=== PATIENT | male | born 1960 | race African-American/Black ===

== ENCOUNTER 2023-05-17 13:16 | Inpatient (IN) | payer OTHER ==
[2023-05-17 13:49] VITALS: BMI 31.2
[2023-05-17] MEDS ORDERED: BENZOCAINE/MENTHOL (CHLORASEPTIC ) LOZENGE MM PRN (14:47)
[2023-05-17] MEDS ORDERED: MAGNESIUM HYDROX 2400MG/30ML ORAL SUSPENSION 30 ML CUP PO PRN (14:47)
[2023-05-17] MEDS ORDERED: MAG HYDROX/AL HYDROX/SIMETH 30 ML UNIT-DOSE CUP PO PRN (14:47)
[2023-05-17] MEDS ORDERED: NALOXONE HCL 0.4 MG/ML VIAL IM PRN (14:47)
[2023-05-17] MEDS ORDERED: guaiFENesin 600 MG TABLET.ER (FP) PO PRN (14:47)
[2023-05-17] MEDS ORDERED: NALOXONE HCL (KLOXXADO) 8 MG SPRAY NS PRN (14:47)
[2023-05-17] MEDS ORDERED: POLYETHYLENE GLYCOL (HEALTHYLAX) 3350 17 GM PACKET PO PRN (14:47)
[2023-05-17] MEDS ORDERED: BENZONATATE 200 MG CAPSULE PO PRN (14:47)
[2023-05-17] MEDS ORDERED: NICOTINE POLACRILEX 2 MG GUM BUC PRN (14:47)
[2023-05-17] MEDS ORDERED: LOPERAMIDE HCL 2 MG CAPSULE PO PRN (14:47)
[2023-05-17] MEDS: THIAMINE HCL 100 MG TABLET (FP) PO SCH (21:26)
[2023-05-17] MEDS: MELATONIN 5 MG TABLETS PO SCH (21:26)
[2023-05-17] MEDS: PRAZOSIN HCL 1 MG CAPSULE PO SCH (22:22)
[2023-05-17] MEDS: DIVALPROEX SODIUM 500 MG TABLET E.C. PO SCH (22:22)
[2023-05-17] MEDS: ATORVASTATIN CA 10 MG TABLET (FP) PO SCH (22:22)
[2023-05-18] MEDS: PRIMIDONE 50 MG TABLET PO SCH (00:16)
[2023-05-18] MEDS: BUDESONIDE/FORMETEROL FUMARATE 80/4.5 mcg INHALER IH SCH (09:53)
[2023-05-18] MEDS: NICOTINE 14 MG/24 HOURS TOPICAL PATCH TD SCH (09:54)
[2023-05-18] MEDS: CHOLECALCIFEROL (VIT D3) 400 UNIT (10 MCG) TABLET PO SCH (09:54)
[2023-05-18] MEDS: GABAPENTIN 400 MG CAPSULE PO SCH (09:54)
[2023-05-18] MEDS: PANTOPRAZOLE 40 MG TABLET PO SCH (09:54)
[2023-05-18] MEDS: PRENATAL VITAMINS W/ FOLIC ACID TABLET (FP) PO SCH (09:54)
[2023-05-18] MEDS: ARIPiprazole 2 MG TABLET PO SCH (09:56)
[2023-05-18] MEDS ORDERED: FINASTERIDE 5 MG TABLET (FP) PO SCH (10:00)
[2023-05-18] MEDS: ASCORBIC ACID 500 MG TABLET (FP) PO SCH (11:08)
[2023-05-18 11:51] LABS: HEMATOCRIT 37.8 % (35.4-49); HEMOGLOBIN 12.3 GM/dL (11.7-16.9); MCH 29.5 pg (25.7-33.7); MCHC 32.5 g/dl (32.0-35.9); MEAN CELL VOLUME 90.6 fl (80-96); MEAN PLT VOLUME 9.1 fl (7.5-11.1); PLATELET COUNT 191 10^3/uL (134-434); RBC 4.17 M/mm3 (4.00-5.60); RDW 14.9 % (11.9-15.9); WHITE BLOOD COUNT 5.9 K/mm3 (4.0-10.0)
[2023-05-18 12:07] LABS: URINE APPEARANCE CLEAR; URINE BILIRUBIN NEGATIVE (NEGATIVE); URINE COLOR YELLOW; URINE GLUCOSE (UA) NEGATIVE (NEGATIVE); URINE KETONE TRACE (NEGATIVE); URINE LEUK ESTERASE NEGATIVE (NEGATIVE); URINE NITRITE NEGATIVE (NEGATIVE); URINE PROTEIN NEGATIVE (NEGATIVE); URINE UROBILINOGEN 0.2 mg/dL (0.2-1.0)
[2023-05-18 12:18] LABS: CHLORIDE 104 mmol/L (98-107); POTASSIUM 3.8 mmol/L (3.5-5.1); SODIUM 138 mmol/L (136-145)
[2023-05-18 12:27] LABS: ALBUMIN 3.1 g/dl (3.4-5.0); ANION GAP 5 mmol/L (4-13); BLOOD UREA NITROGEN 20.6 mg/dL (7-18); CALCIUM 8.2 mg/dL (8.5-10.1); CO2 29 mmol/L (21-32); GLUCOSE,RANDOM 153 mg/dL (74-106)
[2023-05-18 12:30] LABS: CREATININE 1.2 mg/dL (0.55-1.3); SGOT/AST 11 U/L (15-37); SGPT/ALT 19 U/L (13-61)
[2023-05-18 12:32] LABS: ALK PHOS 75 U/L (45-117); BILIRUBIN,TOTAL 0.2 mg/dL (0.2-1); TOT PROT 6.1 g/dl (6.4-8.2)
[2023-05-18] MEDS: MIRTAZAPINE 15 MG TABLET (FP) PO SCH (21:09)
[2023-05-19] MEDS ORDERED: FINASTERIDE 5 MG TABLET (FP) PO SCH (10:00)
[2023-05-19] MEDS: ACETAMINOPHEN 325 MG TABLET (FP) PO PRN (11:43)
[2023-05-20] MEDS: FUROSEMIDE 40 MG TABLET (FP) PO SCH (14:45)
[2023-05-20] MEDS: GABAPENTIN 300 MG CAPSULE PO SCH (21:13)
[2023-05-20] MEDS: ZINC OXIDE/PANTHENOL/VITAMIN E 56 GM TUBE TP PRN (21:15)
[2023-05-21] MEDS: ACETAMINOPHEN 325 MG TABLET (FP) PO PRN (19:27)
[2023-05-27] MEDS: FUROSEMIDE 20 MG TABLET (FP) PO SCH (15:15)
[2023-05-27] MEDS: METHYL SALICYLATE/MENTHOL OINT 30 GM TUBE TP SCH (15:16)
[2023-05-29] MEDS: ALBUTEROL SO4 HFA INHALER IH PRN (06:36)
[2023-05-29] MEDS: INSULIN ASPART SLIDING SCALE (NOVOLOG) 1 VIAL SQ SCH (16:56)
[2023-05-31 06:50] VITALS: RESP 18; TEMP 97.5
[2023-05-31 08:51] VITALS: BP 143/77; PULSE 92
== END 2023-05-31 09:42 | disposition home or self-care (01) | DRG 895 ==
LOC: YASAS 13:16 → Y3W 18:37
PROVIDERS: ADMIT Allergy & Immunology; ATTEND Psychiatry & Neurology Pain Medicine
PROC: HZ42ZZZ Group Counseling for Substance Abuse Treatment, Cognitive-Behavioral (ICD-10-PCS; principal; 2023-05-17)
DX: F10.20 Alcohol dependence, uncomplicated (principal); F14.20 Cocaine dependence, uncomplicated; F12.20 Cannabis dependence, uncomplicated; F17.210 Nicotine dependence, cigarettes, uncomplicated; F10.24 Alcohol dependence with alcohol-induced mood disorder; F10.282 Alcohol dependence with alcohol-induced sleep disorder; F31.9 Bipolar disorder, unspecified; G62.9 Polyneuropathy, unspecified; I10 Essential (primary) hypertension; J44.9 Chronic obstructive pulmonary disease, unspecified; E78.5 Hyperlipidemia, unspecified; E11.9 Type 2 diabetes mellitus without complications; Z79.84 Long term (current) use of oral hypoglycemic drugs; N40.0 Benign prostatic hyperplasia without lower urinary tract symptoms; R76.11 Nonspecific reaction to tuberculin skin test without active tuberculosis; R60.0 Localized edema; Z99.89 Dependence on other enabling machines and devices; Z88.0 Allergy status to penicillin; Z88.8 Allergy status to other drugs, medicaments and biological substances
CPT/HCPCS: 36415; 71046-TC-FY; 80053; 80307; 81003; 82962; 85027; 86593; 86780; 87635; 93005; 93010

== ENCOUNTER 2023-07-28 12:24 | Inpatient (IN) | payer OTHER ==
[2023-07-28 13:39] VITALS: BMI 30.5
[2023-07-28] MEDS ORDERED: ALBUTEROL SO4 HFA INHALER IH PRN (15:20)
[2023-07-28] MEDS ORDERED: P-EPHED 60MG/TRIPROLIDI 2.5MG TABLET PO PRN (15:33)
[2023-07-28] MEDS ORDERED: ACETAMINOPHEN 325 MG TABLET (FP) PO PRN (15:33)
[2023-07-28] MEDS ORDERED: BENZOCAINE/MENTHOL (CHLORASEPTIC ) LOZENGE MM PRN (15:33)
[2023-07-28] MEDS ORDERED: guaiFENesin 600 MG TABLET.ER (FP) PO PRN (15:33)
[2023-07-28] MEDS ORDERED: DOCUSATE SODIUM 100 MG CAPSULE (FP) PO PRN (15:33)
[2023-07-28] MEDS ORDERED: MAGNESIUM HYDROX 2400MG/30ML ORAL SUSPENSION 30 ML CUP PO PRN (15:33)
[2023-07-28] MEDS ORDERED: POLYETHYLENE GLYCOL (HEALTHYLAX) 3350 17 GM PACKET PO PRN (15:33)
[2023-07-28] MEDS ORDERED: MAG HYDROX/AL HYDROX/SIMETH 30 ML UNIT-DOSE CUP PO PRN (15:33)
[2023-07-28] MEDS ORDERED: LOPERAMIDE HCL 2 MG CAPSULE PO PRN (15:33)
[2023-07-28] MEDS ORDERED: BENZONATATE 200 MG CAPSULE PO PRN (15:33)
[2023-07-28] MEDS: BACITRACIN 0.9 GM PACKET TP SCH (18:55)
[2023-07-28 19:02] LABS: PH,URINE 6.5 (5.0-8.0); URINE APPEARANCE CLEAR; URINE BILIRUBIN NEGATIVE (NEGATIVE); URINE COLOR YELLOW; URINE GLUCOSE (UA) NEGATIVE (NEGATIVE); URINE KETONE TRACE (NEGATIVE); URINE LEUK ESTERASE NEGATIVE (NEGATIVE); URINE NITRITE NEGATIVE (NEGATIVE); URINE PROTEIN TRACE (NEGATIVE)
[2023-07-28] MEDS: THIAMINE 100 MG TABLET PO SCH (22:27)
[2023-07-28] MEDS: BUDESONIDE/FORMETEROL FUMARATE 80/4.5 mcg INHALER IH SCH (22:27)
[2023-07-28] MEDS: GABAPENTIN 300 MG CAPSULE PO SCH (22:27)
[2023-07-28] MEDS: MELATONIN 5 MG TABLETS PO SCH (22:28)
[2023-07-28] MEDS: ATORVASTATIN CA 10 MG TABLET (FP) PO SCH (22:28)
[2023-07-29] MEDS: FUROSEMIDE 20 MG TABLET (FP) PO SCH (05:29)
[2023-07-29] MEDS: PANTOPRAZOLE 40 MG TABLET PO SCH (10:11)
[2023-07-29] MEDS: PRENATAL VITAMINS W/ FOLIC ACID TABLET (FP) PO SCH (10:12)
[2023-07-29] MEDS: ASCORBIC ACID 500 MG TABLET (FP) PO SCH (10:36)
[2023-07-29] MEDS: FINASTERIDE 5 MG TABLET (FP) PO SCH (10:36)
[2023-07-29] MEDS: CHOLECALCIFEROL (VIT D3) 400 UNIT (10 MCG) TABLET PO SCH (10:37)
[2023-07-29 12:18] LABS: HEMATOCRIT 42.6 % (35.4-49); HEMOGLOBIN 13.6 GM/dL (11.7-16.9); MCH 28.9 pg (25.7-33.7); MEAN CELL VOLUME 90.4 fl (80-96); PLATELET COUNT 294 10^3/uL (134-434); RBC 4.71 M/mm3 (4.00-5.60); WHITE BLOOD COUNT 8.2 K/mm3 (4.0-10.0)
[2023-07-29 12:38] LABS: POTASSIUM 4.2 mmol/L (3.5-5.1)
[2023-07-29 13:02] LABS: CALCIUM 8.7 mg/dL (8.5-10.1)
[2023-07-29 13:03] LABS: ALBUMIN 3.3 g/dl (3.4-5.0); BLOOD UREA NITROGEN 16.7 mg/dL (7-18)
[2023-07-29 13:06] LABS: CREATININE 0.9 mg/dL (0.55-1.3)
[2023-07-29 13:07] LABS: BILIRUBIN,TOTAL 0.4 mg/dL (0.2-1); TOT PROT 6.4 g/dl (6.4-8.2)
[2023-07-29] MEDS: ACETAMINOPHEN 325 MG TABLET (FP) PO PRN (14:26)
[2023-07-29] MEDS: ARIPiprazole 2 MG TABLET PO SCH (15:21)
[2023-07-29] MEDS: MIRTAZAPINE 15 MG TABLET (FP) PO SCH (22:57)
[2023-07-29] MEDS: PRAZOSIN HCL 1 MG CAPSULE PO SCH (22:57)
[2023-07-29] MEDS: DIVALPROEX SODIUM 500 MG TABLET E.C. PO SCH (22:57)
[2023-07-30] MEDS ORDERED: AMMONIUM LACTATE 12% LOTION 225 GM BOTTLE TP PRN (14:49)
[2023-07-30] MEDS ORDERED: NALTREXONE HCL 50 MG TABLET PO ONE (15:15)
[2023-07-30] MEDS: SILVER SULFADIAZINE 1% TOP CREAM 50 GM JAR TP SCH (18:06)
[2023-07-30] MEDS: NALTREXONE HCL 50 MG TABLET PO ONE (18:34)
[2023-07-30] MEDS: BACLOFEN 10 MG TABLET (FP) PO SCH (22:23)
[2023-07-30] MEDS: PRIMIDONE 50 MG TABLET PO SCH (22:23)
[2023-07-31] MEDS: NALTREXONE HCL 50 MG TABLET PO SCH (10:42)
[2023-07-31 11:58] LABS: INR 1.01 (0.83-1.09); PROTHROMBIN TIME (PATIENT) 11.7 SEC (9.7-13.0)
[2023-08-01] MEDS: ACETAMINOPHEN 325 MG TABLET (FP) PO PRN (00:35)
[2023-08-01] MEDS: HYDROCORTISONE 0.5% TOPICAL CREAM 30 GM TUBE TP PRN (09:42)
[2023-08-02] MEDS: GABAPENTIN 400 MG CAPSULE PO SCH (13:09)
[2023-08-02] MEDS: LACTULOSE 20 GM/30 ML UDC (FOR ORAL USE ONLY) PO SCH (13:09)
[2023-08-02] MEDS: ACETAMINOPHEN 325 MG TABLET (FP) PO ONE (22:35)
[2023-08-03] MEDS: ACETAMINOPHEN 325 MG TABLET (FP) PO PRN (04:01)
[2023-08-03] MEDS: LIDOCAINE 5% TOPICAL PATCH TP SCH (10:06)
[2023-08-03] MEDS: LIDOCAINE PATCH REMOVAL MC SCH (21:04)
[2023-08-03] MEDS: GABAPENTIN 300 MG CAPSULE PO ONE (23:00)
[2023-08-03] MEDS: ACETAMINOPHEN 325 MG TABLET (FP) PO ONE (23:21)
[2023-08-09] MEDS: BACLOFEN 10 MG TABLET (FP) PO SCH (13:25)
[2023-08-10] MEDS: NALTREXONE MICROSPHERES (VIVITROL) 380 MG DISP.SYRIN IM ONE (17:53)
[2023-08-11 06:38] VITALS: BP 156/89; PULSE 81; RESP 16; TEMP 97
== END 2023-08-11 09:38 | disposition home or self-care (01) | DRG 895 ==
LOC: YASAS 12:24 → Y3NR 16:43 → Y5N 07-31 18:06
PROVIDERS: ADMIT Allergy & Immunology; ATTEND Psychiatry & Neurology Pain Medicine
PROC: HZ42ZZZ Group Counseling for Substance Abuse Treatment, Cognitive-Behavioral (ICD-10-PCS; principal; 2023-07-28)
DX: F14.20 Cocaine dependence, uncomplicated (principal); E72.20 Disorder of urea cycle metabolism, unspecified; F10.20 Alcohol dependence, uncomplicated; F17.210 Nicotine dependence, cigarettes, uncomplicated; F31.9 Bipolar disorder, unspecified; E78.5 Hyperlipidemia, unspecified; I10 Essential (primary) hypertension; J44.9 Chronic obstructive pulmonary disease, unspecified; K21.9 Gastro-esophageal reflux disease without esophagitis; M25.511 Pain in right shoulder; G62.9 Polyneuropathy, unspecified; Z88.0 Allergy status to penicillin; Z88.8 Allergy status to other drugs, medicaments and biological substances
CPT/HCPCS: 36415; 80053; 80305; 81003; 82140; 82652; 82962; 83735; 85027; 85610; 86593; 86780; 87070; 87205; 87811; J0475